=== PATIENT | female | born 1980 | race African-American/Black ===

== ENCOUNTER 2021-01-26 14:04 | Outpatient (CLI) | payer BC | END 2021-01-26 14:05 | disposition home or self-care (01) | LOC: CSHMAMMO 14:04 | PROVIDERS: ATTEND Nurse Practitioner Family | DX: Z12.31 Encounter for screening mammogram for malignant neoplasm of breast (principal) | CPT/HCPCS: 77063; 77067 ==

== ENCOUNTER 2021-11-18 17:12 | Outpatient (CLI) | payer BC ==
[2021-11-18 17:59] LABS: Hemoglobin 11.8 g/dL (12.0-15.5); Mean Corpuscular HGB CONC 32.2 g/dL (32.0-36.0); Mean Corpuscular Hemoglobin 27.6 pg (27.0-33.0); Mean Corpuscular Volume 85.7 fl (81.6-98.3); Mean Platelet Volume 9.5 fl (7.4-10.4); Platelet Count 405 10x3/uL (150-450); RBC Distribution Width 13.2 % (11.5-14.5); Red Blood Cell (RBC) Count 4.28 10x6/uL (3.90-5.03); White Blood Cell (WBC) Count 8.3 10x3/uL (3.5-10.5)
[2021-11-18 18:05] LABS: BHCG - Serum Negative (NEGATIVE); Pregs Control Background? CLEAR/WHITE (CLR/WHITE); Pregs Control Bar Appear? YES (CONTROL BAR)
[2021-11-18 18:10] LABS: Anion Gap 15 mmol/L (10-20); BUN (Urea Nitrogen) 12 mg/dL (7.0-18.7); Calc. Creatinine Clearance 0 mL/min (70-130); Calcium 9.6 mg/dL (7.8-10.44); Carbon Dioxide 26 mmol/L (22-29); Chloride 104 mmol/L (98-107); Estimated GFR 109; Glucose 102 mg/dL (70-105); Potassium 3.7 mmol/L (3.5-5.1); Sodium 141 mmol/L (136-145)
== END 2021-11-18 17:13 | disposition home or self-care (01) ==
LOC: CSHLAB 17:12
PROVIDERS: ATTEND Podiatrist Foot & Ankle Surgery
DX: Z01.812 Encounter for preprocedural laboratory examination (principal); Z20.822 Contact with and (suspected) exposure to COVID-19; M20.42 Other hammer toe(s) (acquired), left foot
CPT/HCPCS: 80048; 84703; 85027; 87811

== ENCOUNTER 2021-11-22 09:35 | Day surgery (SDC) | payer BC ==
[2021-11-18 12:32] VITALS: BMI 42.5
[2021-11-22] MEDS ORDERED: Bupivacaine PF 0.5% 30 ML VIAL ONE (11:04)
[2021-11-22] MEDS ORDERED: Neomycin-Polymyxin 1 ML AMP ONE (11:04)
[2021-11-22] MEDS ORDERED: Midazolam HCl 2 mg/2 ml Vial ONE (11:56)
[2021-11-22] MEDS ORDERED: Fentanyl 100 MCG/2 ML VIAL ONE (11:56)
[2021-11-22] MEDS ORDERED: Lidocaine 1% PF 5 ML VIAL ONE (11:56)
[2021-11-22] MEDS ORDERED: Glycopyrrolate 0.2 MG/ML 5 ML SYRINGE ONE (11:56)
[2021-11-22] MEDS ORDERED: PROPOFOL 20 ML ONE (11:56)
[2021-11-22] MEDS ORDERED: Dexamethasone 20 MG/5 ML VIAL ONE (11:56)
[2021-11-22] MEDS ORDERED: Ketorolac Tromethamine 30 MG/ML VIAL ONE (11:56)
[2021-11-22] MEDS ORDERED: Ondansetron PF 4 MG/2 ML Vial ONE (11:56)
[2021-11-22] MEDS ORDERED: CEFAZOLIN 2 GM VIAL ONE (12:06)
== END 2021-11-22 14:04 | disposition home or self-care (01) ==
LOC: CSHSDC 09:35
PROVIDERS: ATTEND Podiatrist Foot & Ankle Surgery
PROC: 0SRQ0JZ Replacement of Left Toe Phalangeal Joint with Synthetic Substitute, Open Approach (ICD-10-PCS; principal; 2021-11-22)
DX: M20.42 Other hammer toe(s) (acquired), left foot (principal); I10 Essential (primary) hypertension; Z79.899 Other long term (current) drug therapy; Z88.5 Allergy status to narcotic agent; Z88.2 Allergy status to sulfonamides; Z20.822 Contact with and (suspected) exposure to COVID-19
CPT/HCPCS: C1713; J0690; J1100; J1885; J2250; J2405; J2704; J3010; S0020

== ENCOUNTER 2022-03-02 11:50 | Day surgery (SDC) | payer BC ==
[2022-02-28 13:18] VITALS: BMI 42.5
[2022-03-02] MEDS ORDERED: CEFAZOLIN 2 GM VIAL ONE (13:53)
[2022-03-02] MEDS ORDERED: PROPOFOL 20 ML ONE (13:59)
[2022-03-02] MEDS ORDERED: Ondansetron PF 4 MG/2 ML Vial ONE (13:59)
[2022-03-02] MEDS ORDERED: Lidocaine 1% PF 5 ML VIAL ONE (13:59)
[2022-03-02] MEDS ORDERED: Midazolam HCl 2 mg/2 ml Vial ONE (13:59)
[2022-03-02] MEDS ORDERED: Bupivacaine PF 0.5% 30 ML VIAL ONE (14:29)
[2022-03-02] MEDS ORDERED: Neosporin Ophth Soln 10 ml Bottle ONE (14:29)
== END 2022-03-02 16:10 | disposition home or self-care (01) ==
LOC: CSHSDC 11:50
PROVIDERS: ATTEND Podiatrist Foot & Ankle Surgery
PROC: 0SGQ04Z Fusion of Left Toe Phalangeal Joint with Internal Fixation Device, Open Approach (ICD-10-PCS; principal; 2022-03-02)
DX: M20.42 Other hammer toe(s) (acquired), left foot (principal); I10 Essential (primary) hypertension; N94.6 Dysmenorrhea, unspecified; Z79.899 Other long term (current) drug therapy; Z88.2 Allergy status to sulfonamides; Z88.1 Allergy status to other antibiotic agents; Z90.49 Acquired absence of other specified parts of digestive tract; Z98.890 Other specified postprocedural states
CPT/HCPCS: C1713; J2250; J2405; J2704; S0020

== ENCOUNTER 2022-06-24 11:11 | Day surgery (SDC) | payer BC ==
[2022-06-21 13:44] VITALS: BMI 42.3
[2022-06-24] MEDS ORDERED: Famotidine/PF 20 mg/2ml Vial ONE (11:59)
[2022-06-24] MEDS ORDERED: Midazolam HCl 2 mg/2 ml Vial ONE (11:59)
[2022-06-24] MEDS ORDERED: Clindamycin/D5W 600 mg/50 ml Premix Bag ONE (12:04)
[2022-06-24] MEDS ORDERED: PROPOFOL 20 ML ONE (12:09)
[2022-06-24] MEDS ORDERED: Lidocaine 2% PF 5 ML VIAL ONE (12:09)
[2022-06-24] MEDS ORDERED: Clindamycin/D5W 900 mg/50 ml Premix Bag ONE (12:13)
[2022-06-24] MEDS ORDERED: Fentanyl 100 MCG/2 ML VIAL ONE (12:18)
[2022-06-24] MEDS ORDERED: Metoclopramide HCl 10 MG/2 ML VIAL ONE (12:22)
[2022-06-24] MEDS ORDERED: Dexamethasone 4 mg/ml Vial ONE (12:22)
[2022-06-24] MEDS ORDERED: Ondansetron PF 4 MG/2 ML Vial ONE (12:22)
[2022-06-24] MEDS ORDERED: Ketorolac Tromethamine 30 MG/ML VIAL ONE (12:26)
[2022-06-24] MEDS ORDERED: Bupivacaine PF 0.5% 30 ML VIAL ONE (12:34)
[2022-06-24] MEDS ORDERED: Neomycin-Polymyxin 1 ML AMP ONE (12:34)
== END 2022-06-24 14:15 | disposition home or self-care (01) ==
LOC: CSHSDC 11:11
PROVIDERS: ATTEND Podiatrist Foot & Ankle Surgery
PROC: 0SGP04Z Fusion of Right Toe Phalangeal Joint with Internal Fixation Device, Open Approach (ICD-10-PCS; principal; 2022-06-24)
DX: M20.41 Other hammer toe(s) (acquired), right foot (principal); I10 Essential (primary) hypertension; R23.3 Spontaneous ecchymoses; R63.5 Abnormal weight gain; Z90.49 Acquired absence of other specified parts of digestive tract; Z88.2 Allergy status to sulfonamides; Z88.1 Allergy status to other antibiotic agents; Z88.5 Allergy status to narcotic agent; Z79.899 Other long term (current) drug therapy; Z68.41 Body mass index [BMI] 40.0-44.9, adult
CPT/HCPCS: C1713; J1100; J1885; J2001; J2250; J2405; J2704; J2765; J3010; J3490; S0020; S0028

== ENCOUNTER 2022-06-28 19:05 | Emergency (ER) | payer BC ==
[2022-06-28 20:01] LABS: #Basophils 0.1 10x3/uL (0.0-0.2); #Eosinphils 0.3 10x3/uL (0.0-0.5); #Monocytes 0.7 10x3/uL (0.0-1.1); #Neutrophils 5.2 10x3/uL (1.5-8.4); %Basophils 0.6 % (0.0-2.0); %Eosinophils 3.5 % (0.0-6.0); %Lymphocytes 22.3 % (18.0-47.0); %Monocytes 8.6 % (0.0-10.0); %Neutrophils 64.6 % (40.0-75.0); Mean Corpuscular HGB CONC 33.4 g/dL (32.0-36.0); Mean Corpuscular Hemoglobin 28.8 pg (27.0-33.0); Mean Corpuscular Volume 86.3 fl (81.6-98.3); Mean Platelet Volume 10.1 fl (7.4-10.4); Platelet Count 266 10x3/uL (150-450); RBC Distribution Width 12.6 % (11.5-14.5); Red Blood Cell (RBC) Count 4.16 10x6/uL (3.90-5.03)
[2022-06-28] MEDS ORDERED: Fentanyl 100 MCG/2 ML VIAL ONE (20:10)
[2022-06-28] MEDS ORDERED: Ondansetron PF 4 MG/2 ML Vial ONE (20:10)
[2022-06-28 20:14] LABS: ALT (SGPT) 27 U/L (8-55); AST (SGOT) 53 U/L (5-34); Albumin 4.2 g/dL (3.5-5.0); Alkaline Phosphatase 100 U/L (40-110); Anion Gap 15 mmol/L (10-20); BUN (Urea Nitrogen) 14 mg/dL (7.0-18.7); Bilirubin, Total 0.4 mg/dL (0.2-1.2); Calc. Creatinine Clearance 0 mL/min (70-130); Calcium 9.1 mg/dL (7.8-10.44); Carbon Dioxide 23 mmol/L (22-29); Chloride 104 mmol/L (98-107); Estimated GFR 86; Globulin 3.1 g/dL (2.4-3.5); Glucose 101 mg/dL (70-105); Lipase 16 U/L (8-78); Potassium 4.1 mmol/L (3.5-5.1); Protein, Total 7.3 g/dL (6.0-8.3); Sodium 138 mmol/L (136-145)
[2022-06-28 20:34] LABS: Platelet Morphology Comment Appears Adequate; RBC Morphology Normal
[2022-06-28 21:20] LABS: Bilirubin Neg (Negative); Blood, Urine 150 (Negative); Clarity Clear (Clear); Glucose, Urine (Dipstick) Normal (Negative); Ketone, Urine Negative (Negative); Leukocyte Negative (Negative); Nitrite Negative (Negative); Protein, Urine (Dipstick) 15 mg/dl (Neg-Trace); Urobilinogen Normal mg/dL (Less than 2)
[2022-06-28 21:24] LABS: Pregnancy Test - Urine (BHCG) Negative (Negative); Pregu Control Background? CLEAR/WHITE (CLR/WHITE); Pregu Control Bar Appear? YES (CONTROL BAR)
[2022-06-28] MEDS ORDERED: Mag-Al Plus 1200 MG/1200 MG/120 MG/30 ML UDCUP ONE (21:31)
[2022-06-28] MEDS ORDERED: Lidocaine Viscous Sol 2% 15 ml UD Cup ONE (21:31)
[2022-06-28 21:34] LABS: Bacteria/HPF 4+ HPF (None Seen); Mucous/LPF 2+ LPF (<2+); RBC/HPF 0-3 HPF (0-3); WBC/HPF 0-3 HPF (0-3)
== END 2022-06-28 22:03 ==
LOC: CSHERS 19:05
DX: K29.70 Gastritis, unspecified, without bleeding (principal); I10 Essential (primary) hypertension; Z79.899 Other long term (current) drug therapy
CPT/HCPCS: 71046; 76705; 80053; 81003; 81015; 81025; 83690; 84484; 85025; 93005; 96374; 96375; J2405; J3010

== ENCOUNTER 2023-08-02 08:15 | Outpatient (CLI) | payer BC | END 2023-08-02 08:16 | disposition home or self-care (01) | LOC: CSHMAMMO 08:15 | PROVIDERS: ATTEND Family Medicine | DX: Z12.31 Encounter for screening mammogram for malignant neoplasm of breast (principal) | CPT/HCPCS: 77063; 77067 ==